=== PATIENT | male | born 1985 | race Two or more races ===

== ENCOUNTER 2018-06-26 16:32 | Emergency (ER) | payer OTHER ==
[~2018-06-26] VITALS: Ht 175.3 cm; Wt 136.1 kg
[2018-06-26] MEDS ORDERED: METFORMIN HCL500 M1 ORAL (16:35)
--- NOTE | 2018-06-26 16:42 | Emergency Room Report ---
History of Present Illness General Chief Complaint: Headache Source: Patient Present Illness HPI 33-year-old male presents to the emergency department for progressive onset 10 out of 10 in severity headache in the posterior head/neck 4 days. Patient reports he had some dizziness this morning, and noticed that symptoms get worse when looking down. Patient denies trauma or fall he denies history of migraines. He states that [id number]-[id number]-[id number] medications have not been helping and his headache is making it difficult to sleep. Denies paresthesias, unilateral weakness, facial droop, inability to speak or swallow. Denies visual changes, photophobia or upper respiratory infections or recent illnesses. Denies nausea or vomiting, fevers or chills. Allergies: Coded Allergies: No Known Allergies (Unverified , 06/26/18) Patient History Past Medical History: see triage record Past Surgical History: none Pertinent Family History: none Reviewed Nursing Documentation: PMH: Agreed; PSxH: Agreed Nursing Documentation-PMH Hx Diabetes: Yes Review of Systems All Other Systems: negative except mentioned in HPI Physical Exam Vital Signs Date Time Temp Pulse Resp B/P (MAP) Pulse Ox O2 Delivery O2 Flow Rate FiO2 06/26/18 16:29 99.3 82 16 160/92 98 Room Air Sp02 EP Interpretation: reviewed, normal General Appearance: no apparent distress, alert, GCS 15, non-toxic Head: normocephalic, atraumatic Eyes: bilateral eye normal inspection, bilateral eye PERRL ENT: hearing grossly normal, normal voice Neck: full range of motion, no meningismus, no bony tend, tender lateral - Right Lateral TTP Respiratory: lungs clear, normal breath sounds, speaking full sentences Cardiovascular #1: regular rate, rhythm Musculoskeletal: back normal, gait/station normal, normal range of motion, non- tender Neurologic: alert, oriented x3, responsive, motor strength/tone normal, sensory intact, cerebellar normal, normal gait, speech normal, no pronator, other - unable to illicit dizziness or nystagmus on exam. , grossly normal Psychiatric: judgement/insight normal Skin: normal color, no rash, warm/dry, well hydrated Lymphatic: no adenopathy Medical Decision Making PA Attestation Dr. mccain is my supervising Physician whom patient management has been discussed with. Diagnostic Impression: Primary Impression: Headache Qualified Codes: R51 - Headache Additional Impression: Neck pain ER Course 33-year-old male presents to the emergency department for progressive onset 10 out of 10 in severity headache in the posterior head/neck 4 days. Patient reports he had some dizziness this morning, and noticed that symptoms get worse when looking down. Patient denies trauma or fall he denies history of migraines. He states that jjqw-nkl-zkbfonr medications have not been helping and his headache is making it difficult to sleep. Denies paresthesias, unilateral weakness, facial droop, inability to speak or swallow. Denies visual changes, photophobia or upper respiratory infections or recent illnesses. Denies nausea or vomiting, fevers or chills. Ddx considered but are not limited to Acute cervical spasm, Migraine, Vertebral artery dissection or thrombus, Mnire's, BPPV, labyrinthitis, cerebellar stroke , hypovolemia, cardiac cause. just to name a few. Vital signs: are WNL, pt. is afebrile H&PE are most consistent with : SALAMANCA secondary to acute cervical strain No focal deficit to indicate TIA or CVA. No vertical nystagmus. ORDERS: -CT head no contrast- negative for ICH, EDEMA, or mass -CMP: Glucose 202 otherwise WNL CBC: WNL -Troponins, CK-MB, CK- all negative or WNL -EKG -UDS: Negative ED INTERVENTIONS: - Meclizine -Reglan -NS Bolus -Toradol -Soma PO ---Pt. also requesting refill of his metformin, and a new glucometer as his broke. DISCHARGE: At this time pt. is stable for d/c to home. Will provide printed patient care instructions, and any necessary prescriptions. Care plan and follow up instructions have been discussed with the patient prior to discharge. Labs Test 06/26/18 16:46 06/26/18 18:10 White Blood Count 8.5 K/UL (4.8-10.8) Red Blood Count 5.23 M/UL (4.70-6.10) Hemoglobin 15.1 G/DL (14.2-18.0) Hematocrit 44.3 % (42.0-52.0) Mean Corpuscular Volume 85 FL (80-99) Mean Corpuscular Hemoglobin 28.8 PG (27.0-31.0) Mean Corpuscular Hemoglobin Concent 34.0 G/DL (32.0-36.0) Red Cell Distribution Width 11.3 % (11.6-14.8) Platelet Count 343 K/UL (150-450) Mean Platelet Volume 7.4 FL (6.5-10.1) Neutrophils (%) (Auto) 61.5 % (45.0-75.0) Lymphocytes (%) (Auto) 26.8 % (20.0-45.0) Monocytes (%) (Auto) 9.1 % (1.0-10.0) Eosinophils (%) (Auto) 1.3 % (0.0-3.0) Basophils (%) (Auto) 1.3 % (0.0-2.0) Sodium Level 137 MMOL/L (136-145) Potassium Level 3.5 MMOL/L (3.5-5.1) Chloride Level 102 MMOL/L (98-107) Carbon Dioxide Level 24 MMOL/L (21-32) Anion Gap 11 mmol/L (5-15) Blood Urea Nitrogen 11 mg/dL (7-18) Creatinine 1.0 MG/DL (0.55-1.30) Estimat Glomerular Filtration Rate > 60 mL/min (>60) Glucose Level 204 MG/DL (74-106) Calcium Level 9.0 MG/DL (8.5-10.1) Total Bilirubin 0.6 MG/DL (0.2-1.0) Aspartate Amino Transf (AST/SGOT) 58 U/L (15-37) Alanine Aminotransferase (ALT/SGPT) 130 U/L (12-78) Alkaline Phosphatase 91 U/L (46-116) Total Creatine Kinase 61 U/L (26-308) Troponin I 0.000 ng/mL (0.000-0.056) Total Protein 8.0 G/DL (6.4-8.2) Albumin 3.8 G/DL (3.4-5.0) Globulin 4.2 g/dL Albumin/Globulin Ratio 0.9 (1.0-2.7) Urine Opiates Screen Negative (NEGATIVE) Urine Barbiturates Screen Negative (NEGATIVE) Phencyclidine (PCP) Screen Negative (NEGATIVE) Urine Amphetamines Screen Negative (NEGATIVE) Urine Benzodiazepines Screen Negative (NEGATIVE) Urine Cocaine Screen Negative (NEGATIVE) Urine Marijuana (THC) Screen Negative (NEGATIVE) EKG Diagnostic Results EP Interpretation: Dr. Moore Rate: tachycardiac - 105 Rhythm: NSR ST Segments: no acute changes ASA given to the pt in ED: No PA Scribe Text This Interpretation was scribed by NED Schmitt. CT/MRI/US Diagnostic Results CT/MRI/US Diagnostic Results : Imaging Test Ordered: CT Head No Contrast Impression " No evidence of acute fracture, hemorrhage, or intracranial process" Per official radiology report- Please see report for specific details. Last Vital Signs Date Time Temp Pulse Resp B/P (MAP) Pulse Ox O2 Delivery O2 Flow Rate FiO2 06/26/18 16:29 99.3 82 16 160/92 98 Room Air Disposition: HOME, SELF-CARE Condition: Stable Scripts Blood-Glucose Meter, Drum-Type (ACCU-CHEK) 1 Each Kit EACH MC BID, #1 Prov: Aisha Schmitt 06/26/18 Blood Sugar Diagnostic, Drum (Accu-Chek Compact Plus) 1 Each Strip 1 EACH MC BID, #60 STRIP Prov: Aisha Schmitt 06/26/18 Metformin Hcl* (METFORMIN HCL*) 1,000 Mg Tablet 1000 MG ORAL BID, #30 TAB Prov: Aisha Schmitt 06/26/18 Ibuprofen* (MOTRIN*) 600 Mg Tablet 600 MG ORAL THREE TIMES A DAY, #30 TAB 0 Refills Prov: Aisha Schmitt 06/26/18 Methocarbamol* (ROBAXIN-750*) 750 Mg Tablet 750 MG PO QID, #28 TAB 0 Refills Prov: Aisha Schmitt 06/26/18 Departure Forms: Return to Work Return to Work Date: Jun 30, 2018 Work Restrictions: None Return to Full Activity: Jun 30, 2018 Patient Instructions: General Headache Without Cause Additional Instructions: Take medications as directed. Follow up with a Primary Care Provider in 3-5 days, even if your symptoms have resolved. --Please review list of primary care clinics, if you do not already have a primary care provider Return sooner to ED if new symptoms occur, or current symptoms become worse. Do not drink alcohol, drive, or operate heavy machinery while taking Robaxin ( Muscle Relaxers) as this may cause drowsiness. - Please note that this Emergency Department Report was dictated using [employer] line operator technology software, occasionally this can lead to erroneous entry secondary to interpretation by the dictation equipment. Aisha Schmittb 1, 2019 16:42
[2018-06-26] MEDS ORDERED: Metoclopramide 10mg/2ml Inj IVP ONE (16:45)
[2018-06-26] MEDS ORDERED: Meclizine 25mg tab ORAL PRN (16:45)
[2018-06-26 17:03] VITALS: BP 160/92
[2018-06-26 17:25] LABS: BASOPHILS % (AUTO) 1.3 % (0.0-2.0); EOSINOPHILS % (AUTO) 1.3 % (0.0-3.0); HEMATOCRIT 44.3 % (42.0-52.0); HEMOGLOBIN 15.1 G/DL (14.2-18.0); LYMPHOCYTES % (AUTO) 26.8 % (20.0-45.0); MEAN CORPUSCULAR VOLUME 85 FL (80-99); MONOCYTES % (AUTO) 9.1 % (1.0-10.0); NEUTROPHILS % (AUTO) 61.5 % (45.0-75.0); PLATELET COUNT 343 K/UL (150-450); RED BLOOD COUNT 5.23 M/UL (4.70-6.10); RED CELL DISTRIBUTION WIDTH 11.3 % (11.6-14.8); WHITE BLOOD COUNT 8.5 K/UL (4.8-10.8)
[2018-06-26 17:27] LABS: ANION GAP 11 mmol/L (5-15); BLOOD UREA NITROGEN 11 mg/dL (7-18); CARBON DIOXIDE 24 MMOL/L (21-32); CHLORIDE 102 MMOL/L (98-107); POTASSIUM 3.5 MMOL/L (3.5-5.1); SODIUM 137 MMOL/L (136-145)
[2018-06-26 17:31] LABS: ALANINE AMINOTRANSFERASE 130 U/L (12-78); ALBUMIN 3.8 G/DL (3.4-5.0); ALBUMIN/GLOBULIN RATIO 0.9 (1.0-2.7); ALKALINE PHOSPHATASE 91 U/L (46-116); ASPARTATE AMINO TRANSFERASE 58 U/L (15-37); BILIRUBIN,TOTAL 0.6 MG/DL (0.2-1.0); CREATINE KINASE 61 U/L (26-308)
--- NOTE | 2018-06-26 18:14 | Diagnostic Imaging Report ---
EXAM: CT Head Without Intravenous Contrast CLINICAL HISTORY: PAIN TECHNIQUE: Axial computed tomography images of the head/brain without intravenous contrast. CTDI is 70 mGy and DLP is 1541 mGy-cm. One or more of the following dose reduction techniques were used: automated exposure control, adjustment of the mA and/or kV according to patient size, use of iterative reconstruction technique. COMPARISON: No relevant prior studies available. FINDINGS: Brain: Unremarkable. No hemorrhage. No edema. Ventricles: Unremarkable. No ventriculomegaly. Bones/joints: Unremarkable. No acute fracture. Soft tissues: Unremarkable. Sinuses: Unremarkable as visualized. Mastoid air cells: Unremarkable as visualized. IMPRESSION: No acute intracranial abnormality.
[2018-06-26] MEDS ORDERED: Ketorolac 30mg Inj IV ONE (18:15)
[2018-06-26] MEDS ORDERED: METFORMIN HCL1000 M1 ORAL (19:22)
[2018-06-26] MEDS ORDERED: IBUPROFEN600 MG ORAL (19:22)
[2018-06-26] MEDS ORDERED: ROBAXIN-750750 MG PO (19:22)
[2018-06-26 19:35] VITALS: BP 150/88
[2018-06-26] MEDS ORDERED: ACCU CHEK COMP MC (19:48)
[2018-06-26] MEDS ORDERED: ACCU-CHEK1 EAC5 MC (19:48)
== END 2018-06-26 19:35 | disposition home or self-care (01) ==
LOC: EDBD 16:32 → EMR 16:57
DX: R51 Headache (principal); M54.2 Cervicalgia; E11.9 Type 2 diabetes mellitus without complications
CPT/HCPCS: 36415; 70450; 80053; 80307; 82550; 84484; 85025; 93005; 96361; 96374; 96375; 99284; J1885; J2765